=== PATIENT | female | born 2005 ===

== ENCOUNTER 2025-06-17 20:56 | Emergency (ER) | payer MEDICAID ==
[2025-06-17] MEDS: Diphtheria,Pertussis(Acell),Tetanus Vaccine 0.5 ML Syringe IM ONE (21:25)
== END 2025-06-17 22:10 | disposition home or self-care (01) ==
LOC: DL.ED 20:56
DX: S61.211A Laceration without foreign body of left index finger without damage to nail, initial encounter (principal); W26.0XXA Contact with knife, initial encounter; Z23 Encounter for immunization
CPT/HCPCS: 12001; 90471; 90715; 99282-25; J2003